=== PATIENT | male | born 1980 | race African-American/Black ===

== ENCOUNTER 2019-08-16 20:43 | Emergency (ER) | payer BC ==
[2019-08-16] MEDS ORDERED: Adacel (T-DAP) 0.5 ML SYRINGE ONE (21:26)
[2019-08-16] MEDS ORDERED: Ibuprofen 800 MG TAB ONE (21:26)
[2019-08-16] MEDS ORDERED: Triple Antibiotic Oint 1 GM Packet ONE (23:30)
--- NOTE | 2019-08-17 08:42 | RAD ---
4 VIEWS RIGHT HAND: Date: 08/16/19 HISTORY: Right second digit laceration. FINDINGS: There is a slightly fracture involving the tuft of the distal phalanx right index finger. T his fracture is just beneath the nail bed and may be related to an open fracture. Subcutaneous soft t issue swelling is seen about the right index finger. No additional fracture is seen, and there is no evidence of a dislocation. IMPRESSION: Fracture tuft of the distal phalanx right index finger. This is just beneath the nail bed and finding s may be related to an open fracture. POS: OFF
== END 2019-08-16 23:35 | disposition home or self-care (01) ==
LOC: ERS 20:43
DX: S62.630A Displaced fracture of distal phalanx of right index finger, initial encounter for closed fracture (principal); S61.210A Laceration without foreign body of right index finger without damage to nail, initial encounter; W45.8XXA Other foreign body or object entering through skin, initial encounter
CPT/HCPCS: 90471; 90715